=== PATIENT | male | born 1995 | race African-American/Black ===

== ENCOUNTER 2021-03-14 17:18 | Emergency (ER) | payer OTHER ==
[~2021-03-14] VITALS: Ht 177.8 cm; Wt 79.4 kg
[2021-03-14 18:07] LABS: ABSOLUTE LYMPHOCYTES 2.3 thou/uL (0.8-5.3); ABSOLUTE MONOCYTES 0.4 thou/uL (0.0-1.2); ABSOLUTE NEUTROPHILS 4.4 thou/uL (1.6-8.1); BASOPHILS 0.6 %; EOSINOPHILS 0.7 %; HEMATOCRIT 43.5 % (42.0-52.0); LYMPHOCYTES 31.6 %; MCH 30.1 pg (26.0-34.0); MCHC 34.6 g/dL (28.0-37.0); MCV 86.8 fL (80.0-100.0); MONOCYTES 5.8 %; MPV 8.7 fl. (7.2-11.1); NUCLEATED RBCS 0 /100WBC; PLATELET COUNT* 258 thou/uL (150-400); POLYS 61.3 %; RBC 5.01 mil/uL (4.50-6.00); RDW-CV 13.9 % (10.5-14.5); WBC 7.1 thou/uL (4.0-11.0)
[2021-03-14 18:16] LABS: CALCIUM 9.2 mg/dL (8.5-10.1); POTASSIUM 3.5 mmol/L (3.5-5.1)
[2021-03-14 18:21] LABS: ALBUMIN 4.2 g/dL (3.4-5.0); TOTAL BILIRUBIN 0.5 mg/dL (<0.1-1.0)
[2021-03-14 18:32] LABS: ALCOHOL < 10 mg/dL (<10); SALICYLATE < 2.8 mg/dL (2.8-20.0)
[2021-03-14 18:33] LABS: ACETAMINOPHEN < 2 ug/mL (10-30)
[2021-03-14 21:44] LABS: URINE BILIRUBIN NEGATIVE (Negative); URINE BLOOD NEGATIVE (Negative); URINE CLARITY CLEAR; URINE COLOR YELLOW; URINE GLUCOSE-RANDOM NEGATIVE (Negative); URINE KETONES NEGATIVE (Negative); URINE LEUKOCYTES-REFLEX NEGATIVE (Negative); URINE NITRITE-REFLEX NEGATIVE (Negative); URINE PROTEIN NEGATIVE (Negative); URINE UROBILINOGEN 0.2 E.U./dl (0.2-1.0)
[2021-03-14 21:54] LABS: AMP/METHAMP Negative (Negative); BARBITURATES Negative (Negative); BENZODIAZEPINES Negative (Negative); COCAINE Negative (Negative); METHADONE Negative (Negative); OPIATES Negative (Negative); PCP Negative (Negative); THC Negative (Negative)
--- NOTE | 2021-03-15 11:18 | EKG ---
[place] [address] ELECTROCARDIOGRAM REPORT Name: SHERIDAN JOHNSON Room: [facility]#: [id number] Admission: 03/14/21 Attend Phys: Discharge: Date of : [birth year] Date of Service: 03/14/211813 Report #: [id number] THIS REPORT FOR: //name// ED Test Date: 2021-03-14 Test Time: 18:14:22 Pat Name: SHERIDAN JOHNSON Department: Room: Gender: Erp Implementation Consultant: : 1995 Requested By: Neftaly Amaya Order Number: [id number] MD: Moises Contreras Measurements Intervals [place] Rate: 96 P: 80 AR: 167 QRS: 75 QRSD: 89 T: 23 QT: 304 QTc: 385 Interpretive Statements Sinus rhythm Borderline T abnormalities, lateral leads Borderline ST elevation, anterior leads No previous ECG available for comparison Electronically Signed On 03-15-2021 11:17:51 CDT by Moises Contreras [email or web address] <ELECTRONICALLY SIGNED> By: Moises Contreras MD, [facility] 03/15/21 1117 13 13 Moises Contreras MD, FACC /EPI
[2021-03-15 14:07] VITALS: BP 130/77
== END 2021-03-15 14:24 | disposition home or self-care (01) ==
LOC: M.ERS 17:18
PROVIDERS: Emergency Medicine Emergency Medical Services
DX: T48.1X2A Poisoning by skeletal muscle relaxants [neuromuscular blocking agents], intentional self-harm, initial encounter (principal); Z20.822 Contact with and (suspected) exposure to COVID-19; R45.851 Suicidal ideations; Y92.89 Other specified places as the place of occurrence of the external cause